=== PATIENT | male | born 1970 | race Caucasian/White ===

== ENCOUNTER 2020-04-16 03:58 | Emergency (ER) | payer OTHER ==
[~2020-04-16 03:58] MED LIST: IBUPROFEN600 MG PO; SILVADENE CREAM20 GM TOP; VENTOLIN HFA 66.7 GM INH
== END 2020-04-16 06:30 | disposition left against medical advice (07) ==
LOC: ER1 03:58
DX: R10.30 Lower abdominal pain, unspecified (principal); Z53.21 Procedure and treatment not carried out due to patient leaving prior to being seen by health care provider